=== PATIENT | male | born 2005 | race Caucasian/White ===

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

== ENCOUNTER 2024-04-07 22:07 | Emergency (ER) | payer SELFPAY ==
[2024-04-07 22:12] VITALS: BP 161/94; PULSE 95; RESP 20; TEMP 36.7; O2SAT 98
--- NOTE | 2024-04-07 22:32 | PC.NURSE ---
Patient exited waiting room with a steady gait.
== END 2024-04-07 22:32 | disposition left against medical advice (07) ==
PROVIDERS: PCP Pediatrics
DX: R20.8 Other disturbances of skin sensation (principal)
CPT/HCPCS: 99199

== ENCOUNTER 2025-02-13 10:40 | Emergency (ER) | payer OTHER, SELFPAY ==
[2025-02-13] VITALS (16 sets, daily range): BP systolic 131–159; BP diastolic 84–98; PULSE 66–77; RESP 14–28; TEMP 36.4; O2SAT 98–100
--- NOTE | ~2025-02-13 | XR_ITS ---
EXAMINATION: XR chest 2V, 02/13/2025 12:37 ENTOMOLOGY PROFESSOR HISTORY: cp COMPARISON: No comparisons available. Technique: 2 views obtained. Findings: The lungs are clear, no effusion. No pneumothorax. Heart is normal size. Mediastinal and hilar contours are within normal limits. Bony thorax no acute abnormality. Impression: No acute cardiopulmonary abnormality. Reviewed, dictated and finalized at location P. MOLOGY PROFESSOR Impression: No acute cardiopulmonary abnormality.
--- NOTE | 2025-02-13 10:41 | ECG_ITS ---
Test Date: 2025-02-13 10:49:44 Measurements Intervals [place] Rate: 73 P: 78 NH: 145 QRS: 77 QRSD: 113 T: 66 QT: 372 QTc: 411 Interpretive Statements SINUS RHYTHM WITH SINUS ARRHYTHMIA RSR' IN V1 OR V2, PROBABLY NORMAL VARIANT NONSPECIFIC ST ELEVATION [0.05+ mV ST ELEVATION] No previous ECG available for comparison Electronically Signed On 02-13-2025 13:22:45 NUT ORCHARDIST by Baljit Daugherty M.D.
[2025-02-13 11:04] LABS: Hematocrit 46.8 % (42.0-52.0); Hemoglobin 16.3 g/dL (14.0-18.0); Immature Granulocyte Percent A 0.2 % (0-0.5); Lymphocytes Absolute Auto 1.13 K/mm3 (0.9-3.2); Mean Corpuscular HGB Conc 34.8 g/dl (32-36); Mean Corpuscular Hemoglobin 30.9 pg (26-34); Mean Corpuscular Volume 88.6 fl (80-100); Nucleated Red Blood Cells Absolute Auto 0.000 K/mm3 (0.0-0.012); Nucleated Red Blood Cells Perc 0.0 % (0.0-0.2); Platelet Count Result 208 k/mm3 (150-375); Red Blood Count 5.28 M/mm3 (4.6-6.20); White Blood Count 9.4 K/mm3 (4.5-10.0)
[2025-02-13 11:16] LABS: Alanine Aminotransferase 23 U/L (6-50); Albumin Level 5.0 g/dL (3.5-5.1); Alkaline Phosphatase 92 U/L (38-126); Anion Gap 10 mmol/L (4-12); Aspartate Amino Transferase 39 U/L (17-59); Bilirubin,Total 0.7 mg/dL (0.2-1.3); Blood Urea Nitrogen 12 mg/dL (9-20); Calcium 9.6 mg/dL (8.4-10.2); Carbon Dioxide 26 mmol/L (22-30); Chloride 99 mmol/L (98-107); Estimated CRCL calculation 113 ml/min; Estimated Glomerular Filt Rate > 60; Glucose 98 mg/dL (65-110); Lipase 59 U/L (23-300); Potassium 3.8 mmol/L (3.4-5.0); Sodium 135 mmol/L (137-145); Total Protein 8.4 g/dL (6.3-8.2)
[2025-02-13 11:18] LABS: INR 1.0; Partial Thromboplastin Time 29.1 Seconds (22.3-36.8); Prothrombin Time 13.6 Seconds (11.1-14.7)
[2025-02-13 11:27] LABS: Troponin I < 0.012 ng/mL (0.000-0.034)
--- NOTE | 2025-02-13 12:19 | ED_ITS ---
HPI - Chest Pain General Chief Complaint: Chest Pain Stated Complaint: CP Time Seen by Provider: 02/13/25 12:19 Focused HPI: This is a 20 year old male that presents to the ER for chest pain. Reports substernal chest pain, difficulty breathing. Reports it has improved since onset. Reports he was feeling unwell this morning with nausea, lightheadedness. GENERAL: Well-appearing, well-nourished, and in no acute distress. HEAD: Normocephalic, atraumatic. CHEST: Clear to auscultation. ?No respiratory distress. HEART: Regular rate and rhythm.? NEURO: ?Alert and oriented x3. Patient screened in triage and initial orders placed.? ?Additional care and disposition to be based upon?diagnostic testing and treatment. Related Data Allergies Allergy/AdvReac Type Severity Reaction Status Date / Time No Known Allergies Allergy Verified 02/13/25 10:45 Review of Systems 2 Review of Systems: All systems reviewed & are unremarkable except as noted in HPI and below Exam 2 Narrative: GENERAL: Well-appearing, well-nourished, and in no acute distress. HEAD: Normocephalic, atraumatic. EYES: EOMI. CHEST: Clear to auscultation. No respiratory distress. No wheezes rales or rhonchi HEART: Regular rate and rhythm. No murmur heard. Normal peripheral pulses. EXTREMITIES: Normal range of motion. No edema. SKIN: Warm, dry, no rash. NEURO: No focal deficits. Alert and oriented x3. PSYCH: Normal mood and affect Course Vital Signs Vital signs: Vital Signs Temperature 97.6 F 02/13/25 10:43 Pulse Rate 77 02/13/25 10:43 Respiratory Rate 14 02/13/25 10:43 Blood Pressure 144/98 H 02/13/25 10:43 Pulse Oximetry 100 02/13/25 10:43 Temperature 97.6 F 02/13/25 10:43 Pulse Rate 71 02/13/25 13:31 Respiratory Rate 15 02/13/25 13:31 Blood Pressure 143/85 H 02/13/25 13:31 Pulse Oximetry 98 02/13/25 13:31 Oxygen Delivery Room Air 02/13/25 13:23 MDM - Chest Pain MDM Narrative Medical decision making narrative: Patient presents the emergency department for chest pain. He is afebrile nontoxic appearing. His vitals are stable. Cbc without leukocytosis. Metabolic panel and lipase without concerning findings. EKG with ST elevation consistent with early repolarization. Baseline and 3 hour troponin are negative. Chest x-ray without acute cardiopulmonary abnormality. Patient updated on his workup, instructed to have follow-up with PCP. Given warnings to return to the ER Differential Diagnosis Differential diagnosis: Likely stable angina, atypical chest pain, costochondritis, biliary colic and other (GERD) Lab Data Attestation: I reviewed the patient's lab results. 02/13/25 10:59 02/13/25 10:59 Labs: Lab Results 02/13/25 02/13/25 Range/Units 10:59 13:30 WBC 9.4 (4.5-10.0) K/mm3 RBC 5.28 (4.6-6.20) M/mm3 Hgb 16.3 (14.0-18.0) g/dL Hct 46.8 (42.0-52.0) % MCV 88.6 (80-100) fl MCH 30.9 (26-34) pg MCHC 34.8 (32-36) g/dl RDW 11.8 (11.5-14.5) % Plt Count 208 (150-375) k/mm3 MPV 9.2 (7.4-10.4) fl Immature Gran % (Auto) 0.2 (0-0.5) % Neut % (Auto) 78.7 H (45.5-73.1) % Lymph % (Auto) 12.0 L (18.3-44.2) % [place] % (Auto) 8.2 (2.6-8.5) % Eos % (Auto) 0.5 (0-4.4) % Baso % (Auto) 0.4 (0.2-1.2) % Lymph # (Auto) 1.13 (0.9-3.2) K/mm3 [place] # (Auto) 0.8 H (0.1-0.6) K/mm3 Eos # (Auto) 0.1 (0-0.3) K/mm3 Baso # (Auto) 0.0 (0.0-0.1) K/mm3 Abs Immat Gran (auto) 0.02 (0.00-0.031) K/mm3 Absolute Neuts (auto) 7.4 H (1.3-6.7) K/mm3 Absolute Nucleated RBC 0.000 (0.0-0.012) K/mm3 Nucleated RBC % 0.0 (0.0-0.2) % PT 13.6 (11.1-14.7) Seconds INR 1.0 APTT 29.1 (22.3-36.8) Seconds Sodium 135 L (137-145) mmol/L Potassium 3.8 (3.4-5.0) mmol/L Chloride 99 (98-107) mmol/L Carbon Dioxide 26 (22-30) mmol/L Anion Gap 10 (4-12) mmol/L BUN 12 (9-20) mg/dL Creatinine 0.91 (0.7-1.3) mg/dL Estim Creat Clear Calc 113 ml/min Estimated GFR > 60 (59 - ) Glucose 98 (65-110) mg/dL Calcium 9.6 (8.4-10.2) mg/dL Total Bilirubin 0.7 (0.2-1.3) mg/dL AST 39 (17-59) U/L ALT 23 (6-50) U/L Alkaline Phosphatase 92 (38-126) U/L Troponin I < 0.012 < 0.012 (0.000-0.034) ng/mL Total Protein 8.4 H (6.3-8.2) g/dL Albumin 5.0 (3.5-5.1) g/dL Lipase 59 (23-300) U/L Imaging Data Radiologist's impression: ITS Impressions Chest X-Ray 02/13/25 12:43 Impression: No acute cardiopulmonary abnormality. ECG Data EKG #1: ECG completion date: 02/13/25 EKG Interpretation: normal rate, sinus rhythm and ST elevation (Likely early repolarization) Critical Care Time Critical Care Time Critical Care Time: No Discharge Plan Discharge Clinical Impression: Chest pain Qualifiers: Chest pain type: unspecified Qualified Code(s): R07.9 - Chest pain, unspecified Patient Disposition: Home Condition: Stable Instructions: Chest Pain (ED) Additional Instructions: Return to the ER if you experience fever, worsening chest pain, abdominal pain with nausea and vomiting, you are unable to keep down liquids or solids, or any other symptoms that are concerning to you Follow up with your primary care doctor Patient Language: [place] Prescriptions: No Action naloxone [Narcan] 4 mg/actuation spray,non-aerosol 4 mg intranasal Q2M PRN (Reason: opioid overdose) Qty: 2 0RF Rx Instructions: spray 1 dose into ONE nostril; alternate nostrils w each dose until help arrives Follow-up/Referrals: Armani,MD Cody [Primary Care Provider, Unknown] Quality HEART score for chest pain patients History: slightly suspicious ECG: non specific repolarization disturbance/LBTB/PM Age: < or = to 45 years Risk factors: no risk factors known Troponin: < or = to 1x normal limit Heart score: 1
--- NOTE | 2025-02-13 13:32 | ECG_ITS ---
Test Date: 2025-02-13 13:35:42 Measurements Intervals [place] Rate: 64 P: 60 FL: 143 QRS: 69 QRSD: 113 T: 60 QT: 387 QTc: 401 Interpretive Statements SINUS RHYTHM WITH SINUS ARRHYTHMIA ST ELEV, PROBABLE NORMAL EARLY REPOL PATTERN Compared to ECG 02/13/2025 10:49:44 NO SIGNIFICANT CHANGES Electronically Signed On 02-13-2025 13:46:39 TRIM MACHINE OPERATOR by Baljit Daugherty M.D.
[2025-02-13] MEDS: ASPIRIN 81 MG CHEWABLE TABLET 324 MG PO (13:35)
[2025-02-13 14:01] LABS: Troponin I < 0.012 ng/mL (0.000-0.034)
[2025-02-13] MEDS: SODIUM CHLORIDE 0.9% IV 1,000 ML 999 ML IV CONT (15:35)
[2025-02-13] MEDS: ONDANSETRON INJ 4 MG/2 ML VIAL IV PUSH (15:35)
[2025-02-13] MEDS: FAMOTIDINE 20 MG/2 ML VIAL IV PUSH (15:38)
== END 2025-02-13 16:54 | disposition home or self-care (01) ==
PROVIDERS: Emergency Medicine; Emergency Provider Physician Assistant; PCP Pediatrics
DX: R07.2 Precordial pain (principal); R94.31 Abnormal electrocardiogram [ECG] [EKG]
CPT/HCPCS: 36415; 71046; 80053; 83690; 84484; 85025; 85610; 85730; 93005; 96361; 96374; 96375; 99284; A9270; J2405; J7030